=== PATIENT | male | born 1955 | race Caucasian/White ===

== ENCOUNTER 2019-11-11 10:56 | Day surgery (SDC) | payer BC, OTHER ==
[2019-11-09 14:48] VITALS: BMI 35.7
[~2019-11-11 10:56] MED LIST: LACTATED RINGERS 1,000 ML IV SCH; LIDOCAINE 1% 20 ML VIAL (10MG/ML) FOR IV START INTRADERMA PRN
[2019-11-11 11:25] VITALS: TEMP 97.8
[2019-11-11] MEDS ORDERED: LACTATED RINGERS 1,000 ML IV ONE (11:25)
[2019-11-11] MEDS ORDERED: PROPOFOL 10 MG/ML 20 ML VIAL IV ONE (12:22)
--- NOTE | 2019-11-11 12:40 | P.PCN ---
Date of Procedure: 11/11/19 Procedure(s) Performed: BRIEF HISTORY: Patient is a 64-year-old pleasant white male scheduled for an elective colonoscopy as a part of screening for colorectal neoplasia. PROCEDURE PERFORMED: Colonoscopy with biopsy and snare polypectomy. PREOPERATIVE DIAGNOSIS: screening for colon cancer. IV sedation per Anesthesia. PROCEDURE: After informed consent was obtained, the patient, was brought into the endoscopy unit. IV sedation was administered by Anesthesia under continuous monitoring. Digital rectal examination was normal. Initially the Olympus CF-160 flexible video colonoscope was then inserted in the rectum, gradually advanced into the cecum without any difficulty. Careful examination was performed as the scope was gradually being withdrawn. Ileocecal valve and the appendiceal orifice were visualized and appeared normal. Prep was excellent. Mucosa of the cecum, ascending colon, transverse colon, descending colon appeared normal. In the sigmoid colon there were 2 polyps measuring 2 mm and 7 mm in size which were removed by biopsy and snare polypectomy and biopsy respectively,rest of the sigmoid colon, and rectum appeared normal. Retroflexion was performed in the rectum and no lesions were seen. The patient tolerated the procedure well. IMPRESSION: 7 mm and 2 mm sigmoid colon polyp status post snare polypectomy and biopsy respectively . RECOMMENDATIONS: Findings of this examination were discussed with the patient as well as his family. He was advised to follow with the biopsy results. If the biopsy shows an adenoma he can have a repeat colonoscopy in 5 years.
[2019-11-11 12:45] VITALS: BP 96/64; PULSE 58; RESP 20
== END 2019-11-11 13:33 | disposition home or self-care (01) ==
LOC: ORWHC2ENDO 10:56
PROVIDERS: ATTEND Internal Medicine Gastroenterology
DX: Z12.11 Encounter for screening for malignant neoplasm of colon (principal); D12.5 Benign neoplasm of sigmoid colon; I10 Essential (primary) hypertension; E78.5 Hyperlipidemia, unspecified; G47.33 Obstructive sleep apnea (adult) (pediatric); C91.10 Chronic lymphocytic leukemia of B-cell type not having achieved remission; Z79.82 Long term (current) use of aspirin; Z79.899 Other long term (current) drug therapy; Z91.048 Other nonmedicinal substance allergy status; Z88.0 Allergy status to penicillin; Z98.811 Dental restoration status
CPT/HCPCS: 88305; 45380; 45385; J2704

== ENCOUNTER → 2022-01-31 | Outpatient (CLI) | payer OTHER ==
[~2022-01-31] MED LIST changes: -LACTATED RINGERS 1,000 ML IV SCH; -LIDOCAINE 1% 20 ML VIAL (10MG/ML) FOR IV START INTRADERMA PRN; +TIXAGEVIMAB/CILGAVIMAB (EUA) 300 MG/3 ML COMBO.PKG IM NR
[2022-01-31 08:25] VITALS: BP 143/103; PULSE 62; RESP 15; TEMP 97.7
== END ==
LOC: PROCWHC3 08:02
PROVIDERS: ATTEND Internal Medicine Hematology & Oncology
DX: C91.10 Chronic lymphocytic leukemia of B-cell type not having achieved remission (principal); Z87.891 Personal history of nicotine dependence; Z88.0 Allergy status to penicillin
CPT/HCPCS: 96372; Q0220

== ENCOUNTER → 2024-08-31 | Outpatient (CLI) | payer BC, MEDICARE ==
--- NOTE | 2024-08-31 12:03 | CA ---
Exercise Stress Test Report Name: Nader Marino Exam Date: 08/31/2024 10:58 Exam Location: [facility] Ht (in): 70 Wt (lb): 238 BSA: 2.25 Ordering Phys: Heidi Dee MD Referring Phys: HEIDI DEE Technologist: Toi Mccallum Age: 68 Gender: M : 1955 Procedure CPT: Indications: R06.09 Other forms of dyspnea ICD-10 Codes: Patient History: DIFFICULTY IN BREATHING, HTN, HYPERCHOLESTEROLEMIA, PRIOR SMOKER Medications: Meds past 24 hrs: Pretest Chest Pain: STRESS TEST Miller Protocol Exercise Duration (min:sec): 08:[address] Depressions (mm): Angina Score: Leung Score: Resting HR (bpm): 70 Peak HR (bpm): 127 Resting BP (mmHg): 114 / 82 Peak BP (mmHg): 190 / 89 MPHR: 153 Target HR: 130 % MPHR: 83 METS: 10.3 Total Dose: Peak Dose: Atropine: Double Product: 74597 BP Response: Stress Termination: Fatigue,DYSPNEA UNABLE TO CONTINUE Stress Symptoms: DIFFICULTY IN BREATHING Stress Summary: ECG ANALYSIS Resting ECG: Sinus rhythm. Right bundle branch block. No arrhythmias. Nonspecific ST-T abnormality. Stress ECG: No ECG evidence of ischemia with exercise. CONCLUSIONS Exercise capacity very good at >[address] segment response to stress. No evidence of stress-induced ischemia Dr. Noemi Luz MD (Electronically Signed) Final Date: 31 August 2024 12:02
== END | disposition home or self-care (01) ==
LOC: RADNMMAIN 10:12
PROVIDERS: ATTEND Family Medicine
DX: R06.09 Other forms of dyspnea
CPT/HCPCS: 93017

== ENCOUNTER 2024-11-30 06:18 | Day surgery (SDC) | payer BC, MEDICARE, OTHER ==
[~2024-11-30 06:18] MED LIST changes: +LACTATED RINGERS 1,000 ML IV SCH; +LIDOCAINE 1% (10MG/ML) FOR IV START INTRADERMA PRN; -TIXAGEVIMAB/CILGAVIMAB (EUA) 300 MG/3 ML COMBO.PKG IM NR
[2024-11-30 07:28] VITALS: RESP 16; TEMP 98
[2024-11-30] MEDS: IV FLUID CONTINUATION 1,000 ML IV ONE (07:28)
[2024-11-30] MEDS ORDERED: PROPOFOL 10 MG/ML 20 ML VIAL IV ONE (07:30)
[2024-11-30] MEDS ORDERED: LIDOCAINE 1% INJ 10MG/ML (20 ML MDV) ONE (07:30)
--- NOTE | 2024-11-30 07:50 | P.PCN ---
Date of Procedure: 11/30/24 Procedure(s) Performed: BRIEF HISTORY: Patient is a 69-year-old pleasant white male scheduled for an elective colonoscopy as a part of evaluation of prior history of colon polyps. PROCEDURE PERFORMED: Colonoscopy with biopsy. PREOPERATIVE DIAGNOSIS: History of colon polyps. IV sedation per Anesthesia. PROCEDURE: After informed consent was obtained, the patient, was brought into the endoscopy unit. IV sedation was administered by Anesthesia under continuous monitoring. Digital rectal examination was normal. Initially the Olympus CF-160 flexible video colonoscope was then inserted in the rectum, gradually advanced into the cecum without any difficulty. Careful examination was performed as the scope was gradually being withdrawn. Ileocecal valve and the appendiceal orifice were visualized and appeared normal. Prep was excellent. Mucosa of the cecum, ascending colon appeared normal. In the transverse colon there was a 4 mm polyp removed by cold biopsy. Rest of the, transverse colon, descending colon, sigmoid colon, and rectum appeared normal. The rectum there was a 3 mm polyp that was removed by cold biopsy. Scattered sigmoid diverticulosis seen. Retroflexion was performed in the rectum and grade 2 internal hemorrhoids were seen. The patient tolerated the procedure well. IMPRESSION: 4 mm transverese colon polyp s/p cold biopsy 3 mm distal rectal polyp s/p cold biopsy Small internal hemorrhoids Sigmoid diverticulosis RECOMMENDATIONS: Findings of this examination were discussed with the patient as well as his family.. He was advised to follow-up with the biopsy results. If the biopsy reveals adenoma he can have repeat colonoscopy in 5 years.
[2024-11-30 07:58] VITALS: PULSE 67
[2024-11-30 08:15] VITALS: BP 117/74
== END 2024-11-30 08:23 | disposition home or self-care (01) ==
LOC: ORWHC2ENDO 06:18
PROVIDERS: ATTEND Internal Medicine Gastroenterology
DX: Z12.11 Encounter for screening for malignant neoplasm of colon (principal); D12.3 Benign neoplasm of transverse colon; K62.1 Rectal polyp; K57.30 Diverticulosis of large intestine without perforation or abscess without bleeding; K64.1 Second degree hemorrhoids; I10 Essential (primary) hypertension; E78.5 Hyperlipidemia, unspecified; G47.33 Obstructive sleep apnea (adult) (pediatric); Z79.82 Long term (current) use of aspirin; Z79.899 Other long term (current) drug therapy; Z86.0100 Personal history of colon polyps, unspecified; Z85.6 Personal history of leukemia; Z88.0 Allergy status to penicillin
CPT/HCPCS: 88305; 45380; J2003; J2704